=== PATIENT | female | born 1965 | race Caucasian/White ===

== ENCOUNTER → 2018-03-25 | Outpatient (CLI) | payer BC ==
[2018-03-25 14:50] VITALS: BP 131/84; PULSE 77; TEMP 98.3; BMI 24.7
--- NOTE | 2018-03-25 16:27 | P.HPOB ---
History of Present Illness H&P Date: 03/25/18 Chief Complaint: The patient is here for her routine gynecologic exam. This is a 52 year old G2 PII with an LMP of 2013. The patient has a long history of a hand rash. She states during the past 15 years she has had intermittent exacerbations of a rash on her hand especially between the fingers. She states that has been aggravated by certain foods including dairy, wheat, and fried foods. The rest typically goes away after a couple of days. The patient noticed similar symptoms in the anterior vulvar area during the past 2 months. She denies seeing any actual blisters, but she states it does feel like paper cuts or like athletes feet. She denies any vaginal discharge. She continues to be prescribed low dose HRT by Dr. Delfina Felipe. Review of Systems The patient has gained 7 pounds over the last year. She denies respiratory, cardiac, or G.I. problems. Past Medical History Past Medical History: Hyperlipidemia, Thyroid Disorder (Hypothyroid) Additional Past Medical History / Comment(s): Seasonal allergies and osteopenia. 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 She does have a history of endometriosis in the past. History of Any Multi-Drug Resistant Organisms: None Reported Additional Past Surgical History / Comment(s): ovary removal-2010 Past Psychological History: No Psychological Hx Reported Smoking Status: Never smoker Past Alcohol Use History: Rare (4 per month) Past Drug Use History: None Reported Additional History: She has been since the . 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 - Past Family History Mother Family Medical History: Congestive Heart Failure (CHF), Diabetes Mellitus Medications and Allergies Home Medications Medication Instructions Recorded Confirmed Type Estradiol [Estradiol 0.05 MG Patch] 1 patch TRANSDERM [id number] 03/25/18 03/25/18 History Progesterone, Micronized 100 mg PO 03/25/18 History [Progesterone] Allergies Allergy/AdvReac Type Severity Reaction Status Date / Time No Known Allergies Allergy Unverified 03/25/18 14:45 Exam Vital Signs Temp Pulse BP 03/25/18 14:45 98.3 F 77 131/84 Intake and Output 03/25/18 03/25/18 03/25/18 06:59 14:59 22:59 Other: Weight 67.585 kg Height 5'5", weight 149 pounds, BMI 24.8. This is a well-developed well-nourished white female who is alert and oriented times 3 in no acute distress. SKIN: there is a macula papular rash on the hands bilaterally in the spaces between the fingers. HEENT: Within normal limits. NECK: Supple without mass or thyromegaly. CHEST AND LUNGS: Clear to auscultation. HEART: Regular rate and rhythm. BREASTS: Are without mass or discharge. AXILLARY EXAM: Negative for adenopathy. BACK: Negative for CVA tenderness. ABDOMEN: Soft, nontender, without palpable masses. PELVIC EXAM: there is mild inflammation in the area of the anterior vulva extending bilaterally to about the 10 o'clock to 2 o'clock regions of the vulva. There is no leukoplakia or pallor and there is mild erythema. This is the area that she describes is feeling irritated. Cervix and vagina appear normal with minimal atrophy. There is no unusual discharge. There is no evidence of prolapse. The uterus is slightly retroverted, nongravid size and nontender. There are no palpable adnexal masses or tenderness. RECTAL EXAM: rectovaginal exam is negative for mass or tenderness and is negative for occult blood. EXTREMITIES: Nontender. IMPRESSION: 1. 52-year-old menopausal female on low dose HRT as prescribed by her primary care physician. 2. Nonspecific vulvar dermatitis which resembles a chronic hand dermatitis that she is had for many years. Differential diagnosis will include eczema, psoriasis, contact dermatitis and atopic dermatitis. The hand rash does not have the typical appearance of scabies. PLAN: 1. Pap smear was deferred since she had a normal in less than 2 years ago. 2. Self breast awareness was discussed with the patient. 3. Mammogram will be due on or around 04/23/2018. The order slip was given to the patient for this. 4. I have recommended screening colonoscopy based on her age. Cards for Dr. Elvira Aldridge and Dr. Bello were given to the patient. She states she will look into this. 5. Kenalog 0.1% cream BID PRN for skin irritation. She will also alternate this with moisturizing hand cream for petroleum jelly as a protective layer. She will do this for up to 2 weeks and if it has not improved I've recommended that she see a paramedic supervisor for her skin conditions. The prescription will be sent to [facility]. 6. She will return in one year and PRN.
== END | disposition home or self-care (01) ==
LOC: WWCWWP 14:25
PROVIDERS: ATTEND Obstetrics & Gynecology
DX: Z53.9 Procedure and treatment not carried out, unspecified reason (principal)

== ENCOUNTER → 2018-09-10 | Outpatient (CLI) | payer BC ==
--- NOTE | 2018-09-11 10:43 | MM ---
Reason for exam: screening (asymptomatic). Last mammogram was performed 1 year and 5 months ago. History: Taking progesterone for 5 years beginning at age 44. Physical Findings: A clinical breast exam by your physician is recommended on an annual basis and results should be correlated with mammographic findings. MG 3D Screening Mammo W/Cad Bilateral CC and MLO view(s) were taken. Prior study comparison: April 23, 2017, bilateral MG 3d screening mammo w/cad. March 29, 2016, right breast MG 3d work up w/cad RT. The breast tissue is extremely dense which could obscure a lesion on mammography. No suspicious abnormality. No significant changes when compared with prior studies. ASSESSMENT: Negative, BI-RAD 1 RECOMMENDATION: Routine screening mammogram of both breasts in 1 year.
== END | disposition home or self-care (01) ==
LOC: RADMAMWWP 09:56
PROVIDERS: ATTEND Obstetrics & Gynecology
DX: Z12.31 Encounter for screening mammogram for malignant neoplasm of breast (principal)
CPT/HCPCS: 77063; 77067

== ENCOUNTER 2019-04-22 08:12 | Day surgery (SDC) | payer BC ==
[2019-04-20 11:57] VITALS: BMI 25.0
[~2019-04-22 08:12] MED LIST: LACTATED RINGERS 1,000 ML IV SCH; LIDOCAINE 1% 20 ML VIAL (10MG/ML) FOR IV START INTRADERMA PRN
[2019-04-22 08:59] VITALS: RESP 16; TEMP 97.8
[2019-04-22] MEDS ORDERED: PROPOFOL 10 MG/ML 20 ML VIAL IV ONE (09:54)
--- NOTE | 2019-04-22 10:08 | P.PCN ---
Date of Procedure: 04/22/19 Procedure(s) Performed: BRIEF HISTORY: Patient is a 53-year-old pleasant female scheduled for an elective colonoscopy as a part of screening for colorectal neoplasia. PROCEDURE PERFORMED: Colonoscopy. PREOPERATIVE DIAGNOSIS: Screening for colon cancer. IV sedation per Anesthesia. PROCEDURE: After informed consent was obtained, the patient, was brought into the endoscopy unit. IV sedation was administered by Anesthesia under continuous monitoring. Digital rectal examination was normal. Initially the Olympus CF-160 flexible video colonoscope was then inserted in the rectum, gradually advanced into the cecum without any difficulty. Careful examination was performed as the scope was gradually being withdrawn. Ileocecal valve and the appendiceal orifice were visualized and appeared normal. Prep was excellent. Mucosa of the cecum, ascending colon, transverse colon, descending colon, sigmoid colon, and rectum appeared normal. Retroflexion was performed in the rectum and no lesions were seen. The patient tolerated the procedure well. IMPRESSION: Normal-appearing colon from rectum to cecum with no evidence of colorectal neoplasia. RECOMMENDATIONS: Findings of this examination were discussed with the patient as well as a family. She was advised to have a repeat screening colonoscopy in 10 years.
[2019-04-22 10:35] VITALS: BP 120/73; PULSE 74
== END 2019-04-22 10:55 | disposition home or self-care (01) ==
LOC: ORWHC2ENDO 08:12
PROVIDERS: ATTEND Internal Medicine Gastroenterology
DX: Z12.11 Encounter for screening for malignant neoplasm of colon (principal); E07.9 Disorder of thyroid, unspecified; Z79.890 Hormone replacement therapy; Z79.818 Long term (current) use of other agents affecting estrogen receptors and estrogen levels; Z90.721 Acquired absence of ovaries, unilateral
CPT/HCPCS: J2704; G0121

== ENCOUNTER → 2019-10-29 | Outpatient (CLI) | payer BC ==
--- NOTE | 2019-10-29 17:29 | CONS ---
CONSULTATION DATE OF SERVICE: 10/29/2019 A 54-year-old lady has been evaluated in the Sleep Center for excessive daytime sleepiness and snoring. HISTORY OF PRESENT ILLNESS/SLEEP-WAKE EVALUATION: Patient's usual sleep schedule from 10 p.m. to 5:45 - 6:00 am on working days and until 6:30 a.m. on weekends. Sometimes, she has problems with falling asleep. She prefers to sleep on the side and stomach position. She snores and according to her , she wakes up from sleep with episodes of changing of her breathing. She wakes up with a dry mouth, palpitation, restless legs and waking up to 5 times at night and once she has episodes of nocturia. No history of hypnagogic hallucinations, sleep paralysis or cataplexy. In the morning, she wakes up tired, has difficulties to pay attention, falling asleep during the day, has problems with memory, concentration, debility, anxiety, sexual dysfunction. [place] Sleepiness Scale significantly increased to 14. She may take one nap a day around 3 - 4:00 pm. Really she does not feel refreshed after a nap, does not see dreams during nap. PAST MEDICAL HISTORY: Positive for tiredness. PAST SURGICAL HISTORY: Oophorectomy. MEDICATIONS: Progesterone, estradiol and T-thyroid. SOCIAL HISTORY: Alcohol consumption occasional. No history of using any illegal drugs. FAMILY HISTORY: Positive for heart problems, hyperlipidemia, asthma, diabetes, restless legs. REVIEW OF SYSTEMS: Awakenings from sleep, sleepiness and tiredness during the day. PHYSICAL EXAM: lady without distress, BP 130/67, HR 72, RR 16, height 5 foot, 5-1/2 inches, weight 146 pounds, body mass index 23.9, temperature 98.6, oxygen saturation at room air 97%. OROPHARYNX: Moderately low position of soft palate. Neck is 13 inches in circumference. NECK: Supple, no JVD. Thyroid is not palpable. LUNGS: Clear to percussion and to auscultation. Good air exchange. No wheezing or rhonchi. HEART: S1, S2 regular. No murmurs, gallops, or rubs. ABDOMEN: Soft and nontender. Bowel sounds are present. No organomegaly appreciated. EXTREMITIES: No clubbing or cyanosis. BIOCHEMICAL DEVELOPMENT ENGINEER: Awake, alert, and oriented X3. Cranial nerves 2 to 7 intact. There is no fasciculation or atrophy. noted. No focal deficits observed. IMPRESSION: 1. Snoring, awakenings from sleep after changing of the breathing, nocturia, tiredness, and sleepiness during the day. Possible obstructive sleep apnea- hypopnea syndrome. 2. Significant excessive daytime sleepiness with [place] Sleepiness Scale of 14. Dictate necessity to include hypersomnia in differential diagnosis. 3. Positive history of restless legs movements at night, possibly periodic limb movements. 4. Hypothyroidism. 5. Status post oophorectomy. PLAN: 1. Home sleep apnea test. 2. CPAP/BiPAP titration if sleep study confirms obstructive sleep apnea-hypopnea syndrome. 3. Preferable position during sleep on the side. 4. No driving if patient feels any sleepiness. 5. I will see patient for follow up visit to explain results of testing and following plan. 6. If sleep study will be negative for obstructive sleep apnea-hypopnea syndrome, will proceed with polysomnogram and following with multiple sleep latency tests for objective evaluation of patient's symptoms of excessive daytime sleepiness. Thank you very much for referring this patient for consultation. Sincerely, Kodi Ron MD, PhD, FAASM Diplomat of [place] [employer] [place] [employer] Lead Mechanical Engineer of [facility] [place] MMODL / OPALN: [id number] /
== END | disposition home or self-care (01) ==
LOC: SLEEP 14:56
PROVIDERS: ATTEND Internal Medicine
DX: G47.10 Hypersomnia, unspecified (principal); G25.81 Restless legs syndrome; R53.83 Other fatigue; R35.1 Nocturia; E03.9 Hypothyroidism, unspecified; Z98.890 Other specified postprocedural states; Z79.890 Hormone replacement therapy
CPT/HCPCS: 99211

== ENCOUNTER → 2019-12-16 | Day surgery (SDC) | payer BC ==
[2019-12-16 09:45] VITALS: BP 143/86; PULSE 81; RESP 16; TEMP 98.1
--- NOTE | 2019-12-16 11:01 | P.PCN ---
Date of Procedure: 12/16/19 Preoperative Diagnosis: Cervical polyp Postoperative Diagnosis: Same Procedure(s) Performed: Removal of cervical polyp Anesthesia: none Surgeon: Milo Cox Estimated Blood Loss (ml): 0 Pathology: other (cervical polyp) Condition: stable Disposition: same day Indications for Procedure: This was a 54-year-old with an LNMP of 2014. At her routine examination, she was found to have a polypoid growth at the 5 o'clock position of her ectocervix. The polypoid growth measuring approximately 3 x 4 mm. She also had recently experienced a small amount of postmenopausal vaginal bleeding on 12/02/2019. She has been taking continuous HRT as prescribed by her primary doctor. She has also been experiencing chronic vulvar irritation for about 1- 1/2 years. Initially I was planning to biopsy the vulva in the area showing the greatest irritation, however, her recent Pap smear showed evidence of Julisa and she has also been told she has a chronic overgrowth of Julisa. Upon inspection today, there was no focal lesions and there was generalized vulvar erythema and inflammation. The patient requested to not do the vulvar biopsy today. The decision was made not to biopsy the vulva but to treat the Julisa. I did proceed to remove the cervical polyp. The patient was also notified of the abnormal Pap smear showing ASCUS with fungal elements. High-risk HPV testing is pending. Operative Findings: Generalized vulvar erythema and generalized inflammation without focal lesion was noted. The cervix had a polypoid mass at the 5 o'clock position measuring approximately 3 x 4 mm. Description of Procedure: We discussed the proposed procedures including vulvar biopsy and removal of cervical polyp. We discussed possible risks and complications including bleeding and infection. We also have discussed the Pap smear findings showing ASCUS with fungal elements consistent with Julisa. With these findings, the patient requested to cancel the vulvar biopsy and to treat the Julisa to see if this helps. External genitalia revealed generalized vulvar erythema and generalized inflammation. No focal lesions were noted. The patient was placed in the lithotomy position and a speculum was inserted into the vagina. The cervical findings were as noted above. The cervix and vagina were prepped with Betadine solution. A cervical biopsy instrument was used to remove the polypoid mass and this was done without complications. A small amount of blood was noted at the site which was made hemostatic with a silver nitrate stick. The patient tolerated the procedure well. The estimated blood loss was minimal. Post procedure vitals signs include blood pressure was 149/84, pulse 59 and pulse oximeter 100%. The patient was advised to avoid sexual activity for 7 days. She'll also avoid running for 4 day. She was instructed to call if she has heavier bleeding or unusual pain or fever. Specimens sent included cervical polyp. A prescription for Diflucan 150 mg by mouth daily at bedtime 3 days and a presc ription for Terazol 7 cream which she will apply to the outer vagina and vulva daily at bedtime 7 days. The electronic prescriptions will be sent to [facility]. The patient is to undergo a pelvic ultrasound for the small postmenopausal bleeding. The patient was given an order slip for this on 12/08/2019. Await high-risk HPV testing for her ASCUS Pap smear.
--- NOTE | 2019-12-22 13:55 | P.PN ---
Progress Note - Text Progress Note Date: 12/22/19 OUTPATIENT FOLLOW-UP NOTE TEST(S)/RESULTS: Test results from 12/08/2019 include passer showing ASCUS with negative high-risk HPV testing. Signs of Julisa on the Pap smear were also noted. Removal of cervical polypoid growth on 12/16/2019 showed benign polypoid squamous and endocervical mucosa with mild squamous atypia. METHOD OF NOTIFICATION: The patient was notified by phone. PATIENT COMMENTS: The patient states the Diflucan and Terazol cream have been helping with her vulvar irritation and she states she noticed an improvement almost immediately. She has made an appointment for a pelvic ultrasound at her local hospital during the month of December. DIAGNOSIS: ASCUS Pap smear with negative high-risk HPV testing. Julisa vaginitis and vulvitis with symptomatic improvement with Diflucan and Terazol. Polypoid cervical growth biopsy showed mild squamous atypia. DISCUSSION: She states her other doctor may want to treat her for a longer period of time with Diflucan for possible systemic Julisa. PLAN: Repeat Pap smear in 2-3 years with high-risk HPV testing at that time. Pelvic ultrasound is scheduled at her local hospital sometime this month. She was instructed to call if she has recurrent vulvar irritation or focal changes that are not improved with the Julisa treatment. She was advised to return in one year for her annual well woman exam and as needed.
== END ==
LOC: WWCWWP 08:46
PROVIDERS: ATTEND Obstetrics & Gynecology
DX: R87.612 Low grade squamous intraepithelial lesion on cytologic smear of cervix (LGSIL) (principal); N87.9 Dysplasia of cervix uteri, unspecified; B37.3 Candidiasis of vulva and vagina; Z79.890 Hormone replacement therapy; N95.0 Postmenopausal bleeding; E78.5 Hyperlipidemia, unspecified; E07.9 Disorder of thyroid, unspecified; M85.80 Other specified disorders of bone density and structure, unspecified site; Z86.19 Personal history of other infectious and parasitic diseases; Z87.42 Personal history of other diseases of the female genital tract; Z90.721 Acquired absence of ovaries, unilateral; Z82.49 Family history of ischemic heart disease and other diseases of the circulatory system; Z83.3 Family history of diabetes mellitus; Z79.899 Other long term (current) drug therapy
CPT/HCPCS: 88305

== ENCOUNTER → 2020-01-13 | Day surgery (SDC) | payer BC ==
[2020-01-13 12:17] VITALS: BP 138/70; PULSE 70; RESP 18; TEMP 98.6
--- NOTE | 2020-01-13 13:01 | P.PCN ---
Date of Procedure: 01/13/20 Preoperative Diagnosis: Post menopausal bleeding. Thickened endometrium. Postoperative Diagnosis: Same Procedure(s) Performed: endometrial biopsy Anesthesia: none Surgeon: Milo Cox Estimated Blood Loss (ml): 0 Pathology: other (endometrial tissue) Condition: stable Disposition: same day Indications for Procedure: This was a 54-year-old menopausal female with a LNMP of 2014. The patient was on HRT for several years. The patient had light postmenopausal bleeding around 12/02/2027. Pelvic ultrasound showed endometrial thickening with an endometrial thickness of 14 mm. The patient discontinued her HRT around 01/05/2020 and was scheduled for an endometrial biopsy. Postmenopausal bleeding has stopped after she discontinued the HRT. Operative Findings: The uterus is slightly retroverted. There are no palpable adnexal masses or tenderness. The uterus sounded to 7.0 cm. Small tissue was obtained. Description of Procedure: The procedure and indications were discussed with the patient in detail. Possible risks including bleeding, infection, and uterine perforation were discussed. All questions were answered. The patient was placed in the lithotomy position and bimanual examination was performed. The uterus was found to be slightly retroverted and is nongravid size. There are no palpable adnexal masses or tenderness. The cervix and vagina were prepped with Betadine solution. The posterior lip of the cervix was grasped with an Allis clamp. The 3 mm endometrial biopsy instrument was inserted into the endometrial cavity without difficulty. The instrument was placed to the fundus and measured 7.0 cm. Negative pressure was applied and a [id number] rotating motion was used. Small amount of tissue was obtained. The procedure was performed one more time and again, small amount of tissue was obtained. The tissue was sent for pathological examination. A small amount of tissue was noted at the cervical os immediately following the sampling and this was also sent with the endometrial tissue. The patient tolerated the procedure well. The estimated blood loss was 0 mL. Specimens sent included the endometrial tissue. There were no complications. Post procedure instructions were given to the patient. The patient was instructed to call if she has heavy bleeding, unusual pain, fever or problems. Post procedure vitals signs: Blood pressure 156/84, pulse 86, pulse oximeter 98%. The patient was discharged home in stable condition.
--- NOTE | 2020-01-19 11:43 | P.PN ---
Progress Note - Text Progress Note Date: 01/19/20 OUTPATIENT FOLLOW-UP NOTE TEST(S)/RESULTS: Endometrial biopsy pathology from 01/13/2020 showed a benign disordered proliferative endometrium. METHOD OF NOTIFICATION: She was notified by phone. PATIENT COMMENTS: Patient had discontinued HRT about 10 days prior to the endometrial biopsy. She has been experiencing hot flashes at night and she tends to wake up about every 1 hour because of this. She also has noticed more moodiness and anxiety which she attributes to stopping the HRT. DIAGNOSIS: Benign endometrial biopsy. Menopausal symptoms after discontinuing HRT including vasomotor symptoms, moodiness and anxiety DISCUSSION: We had a long discussion regarding options for her menopausal symptoms. I have recommended that she try to stay off of HRT if possible. We have discussed possible risks including increased risk for breast cancer, heart attack and stroke with combination HRT. We discussed other options including SSRI medications as well as clonidine. She would like to have a trial of paroxetine for her symptoms. A prescription for paroxetine 10 mg daily will be sent to [facility] in [facility]. PLAN: As above. She will follow-up in approximately 2 months to let me know how she is doing with the medication. She will also call if she has any questions or problems.
== END ==
LOC: WWCWWP 11:58
PROVIDERS: ATTEND Obstetrics & Gynecology
DX: R93.89 Abnormal findings on diagnostic imaging of other specified body structures (principal); N95.0 Postmenopausal bleeding
CPT/HCPCS: 88305

== ENCOUNTER → 2020-02-04 | Outpatient (CLI) | payer BC ==
--- NOTE | 2020-02-05 04:22 | SFUN ---
SLEEP CENTER FOLLOW UP NOTE DATE OF SERVICE: 02/04/2020 This is a 54-year-old lady who has been followed in Sleep Center to discuss results of the sleep study and following plan. Previously, patient had home sleep apnea test which was negative for obstructive sleep apnea, but patient continued to have symptoms of excessive daytime sleepiness and we proceed with polysomnogram and multiple sleep latency test. Polysomnogram did not show any significant abnormalities of respiration. Total apnea- hypopnea index 1.1. In REM sleep, it is although high at 4.7, but still in the range which by today criteria is considered to be normal. Lowest oxygen level 92.3% which is normal. EMG showed 15.2 periodic limb movements per hour with 1.8 microarousals per hour which does indicate mild periodic limb movements. Multiple sleep latency test done on the following day consisted from 5 naps. Mean sleep latency was 8.8 minutes. One REM period was diagnosed in the last nap. I discussed results of sleep study with the patient in detail. Today her [place] Sleepiness Scale is 15, which does indicate sleepiness. MEDICATIONS: Progesterone, Estradiol, T thyroid. PHYSICAL EXAMINATION: GENERAL: Patient in no distress. VITAL SIGNS: BP 141/79, HR 77, RR 15, weight 151.6 pounds, temperature 98.5, oxygen saturation at room air 96%. HEENT: PERRLA, EOMI, evaluation of oropharynx showed tongue protrudes midline. NECK: Supple, no JVD. Thyroid is not palpable. LUNGS: Clear to percussion and to auscultation. Good air exchange. No wheezing or rhonchi. HEART: S1, S2 regular. No murmurs, gallops, or rubs. ABDOMEN: Soft and nontender. Bowel sounds are present. No organomegaly appreciated. EXTREMITIES: No clubbing or cyanosis. WRITER EDITOR: Awake, alert, and oriented X3. Cranial nerves 2 to 7 intact. There is no fasciculation or atrophy. noted. No focal deficits observed. IMPRESSION: 1. No significant respiratory abnormalities during sleep following today's criteria. 2. Mild periodic limb movements during the sleep have been documented. 3. Multiple sleep latency test showed shortening of sleep latency to 8.8 minutes with one period of REM sleep which does not confirm the diagnosis of narcolepsy, but possibly may indicate idiopathic hypersomnia or could be secondary to periodic limb movements. 4. Hypothyroidism. 5. Status post oophorectomy. PLAN: 1. Please check iron profile including ferritin level. Low level of iron could be related to development of periodic limb movements and restless legs. If level of ferritin less than 50 mcg/mL, treatment with iron supplement is indicated. 2. Sleep hygiene with regular time in bed for at least 8 hours. 3. Precautions related to driving. No driving if feeling sleepiness. 4. I discussed with the patient possibility to use medications to prevent sleepiness during the day. At the present time patient prefers not to start additional medications. Thank you very much for allowing me to participate in management of your patient. Sincerely, Kodi Ron MD, PhD, FAASM Diplomat of [place] [employer] [place] [employer] Head Banquet Waitress of [facility] [place] MMODL / OPALN: [id number] /
== END | disposition home or self-care (01) ==
LOC: SLEEP 17:01
PROVIDERS: ATTEND Internal Medicine
DX: G47.61 Periodic limb movement disorder (principal); E03.9 Hypothyroidism, unspecified; Z90.721 Acquired absence of ovaries, unilateral

== ENCOUNTER → 2020-02-18 | Outpatient (CLI) | payer BC ==
--- NOTE | 2020-02-19 12:20 | MM ---
Reason for exam: screening (asymptomatic). Last mammogram was performed 1 year and 5 months ago. History: Taking progesterone for 5 years beginning at age 44. Physical Findings: A clinical breast exam by your physician is recommended on an annual basis and results should be correlated with mammographic findings. MG 3D Screening Mammo W/Cad Bilateral CC and MLO view(s) were taken. Prior study comparison: September 10, 2018, bilateral MG 3d screening mammo w/cad. April 23, 2017, bilateral MG 3d screening mammo w/cad. The breast tissue is heterogeneously dense. This may lower the sensitivity of mammography. There are benign appearing round calcifications bilaterally. There is no discrete abnormality. ASSESSMENT: Benign, BI-RAD 2 RECOMMENDATION: Routine screening mammogram of both breasts in 1 year.
== END | disposition home or self-care (01) ==
LOC: RADMAMWWP 13:05
PROVIDERS: ATTEND Obstetrics & Gynecology
DX: Z12.31 Encounter for screening mammogram for malignant neoplasm of breast (principal)
CPT/HCPCS: 77063; 77067

== ENCOUNTER → 2021-03-21 | Outpatient (CLI) | payer BC ==
[2021-03-21 12:56] VITALS: BP 138/81; PULSE 63; RESP 16; TEMP 97.9
--- NOTE | 2021-03-21 13:40 | P.HPOB ---
History of Present Illness H&P Date: 03/21/21 Chief Complaint: The patient is here for her routine gynecologic exam and ma mmogram. This is a 55-year-old with an LNMP of 2014. The patient had a benign endometrial biopsy last year for postmenopausal bleeding on continuous HRT. She did stop HRT for a while, but is now again taking HRT through her PCP, Dr. Chinyere Felipe. She states she has had a small amount of postmenopausal bleeding when she misses her progesterone pills. She denies any other postmenopausal bleeding. She states she has an order slip for a pelvic ultrasound from her PCP, but has not yet done this. She plans on having the pelvic ultrasound. Her last Pap smear showed ASCUS on 12/08/2019. The high- risk HPV testing at that time was negative. Review of Systems The patient has gained 9 pounds over the last year. She denies respiratory, cardiac, or G.I. problems. Past Medical History Past Medical History: Hyperlipidemia, Thyroid Disorder Additional Past Medical History / Comment(s): Chronic Lyme's disease. Seasonal allergies and osteopenia. PAST MAGAZINE HAND HISTORY: She has no history of STDs. History of Any Multi-Drug Resistant Organisms: None Reported Additional Past Surgical History / Comment(s): Left ovary removed with right ovarian cystectomy in 2010. Colonoscopy 2019(next after 10yr). Past Anesthesia/Blood Transfusion Reactions: Motion Sickness Past Psychological History: No Psychological Hx Reported Smoking Status: Never smoker Past Alcohol Use History: Rare Past Drug Use History: None Reported Additional History: She has been since the and is retired. - Past Family History Mother Family Medical History: Congestive Heart Failure (CHF), Diabetes Mellitus Medications and Allergies Home Medications Medication Instructions Recorded Confirmed Type Multivitamins, Thera [Multivitamin 1 tab PO DAILY 04/20/19 03/21/21 History (formulary)] [place]-3 Fatty Acids/Fish Oil [Fish 1 each PO DAILY 04/20/19 03/21/21 History Oil 1,000 mg Softgel] Thyroid,Pork [Forensic Investigator Thyroid] 90 mg PO DAILY 04/20/19 03/21/21 History Vitamin K/D 1 tab PO DAILY 04/20/19 03/21/21 History estradioL [Estradiol 0.0375 MG 1 patch TRANSDERM DIRECTED 12/08/19 03/21/21 History Patch] Progesterone, Micronized 200 mg PO HS 03/21/21 03/21/21 History [Progesterone] Allergies Allergy/AdvReac Type Severity Reaction Status Date / Time No Known Allergies Allergy Verified 03/21/21 12:50 Exam Vital Signs Temp Pulse Resp BP Pulse Ox 03/21/21 12:51 97.9 F 63 16 138/81 99 Intake and Output 03/20/21 03/21/21 03/21/21 22:59 06:59 14:59 Other: Weight 71.214 kg Height 5 feet 5 inches, weight 157 pounds, BMI 26.1. This is a well-developed well-nourished white female who is alert and oriented times 3 in no acute distress. HEENT: Within normal limits. NECK: Supple without mass or thyromegaly. CHEST AND LUNGS: Clear to auscultation. HEART: Regular rate and rhythm. BREASTS: Are without mass or discharge. There is a right breast mole at the 7 o'clock position measuring 9 x 7 mm which she has had for many years and she states this is unchanged. 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 AXILLARY EXAM: Negative for adenopathy. BACK: Negative for CVA tenderness. ABDOMEN: Soft, nontender, without palpable masses. PELVIC EXAM: Normal external genitalia with minimal atrophy. Cervix and vagina appear normal with minimal atrophy. There is a small amount of dark blood in the back of the vagina with no active bleeding. There is no evidence of prolapse. The uterus is midposition, slightly retroverted, nongravid size and nontender. There are no palpable adnexal masses or tenderness. RECTAL EXAM: Rectovaginal exam is negative for mass or tenderness and is negative for occult blood. EXTREMITIES: Nontender. IMPRESSION: 1. 55-year-old menopausal female on continuous HRT as prescribed by her PCP. 2. Small postmenopausal bleeding only after missing progesterone pills per the patient. Benign endometrial biopsy one year ago. 3. History of ASCUS Pap smear on 12/08/2019 with negative high-risk HPV testing at that time. PLAN: 1. Pap smear was deferred and we will plan on performing a cotest next year. 2. Self breast awareness was discussed with the patient. We have also discussed symptoms associated with inflammatory breast cancer. 3. Screening mammogram will be done today. 4. I have recommended she wean off of HRT. She states she will schedule a pelvic ultrasound as ordered by her PCP. She will send a copy of the results to me. She understands that if the endometrial thickness is thickened, I may recommend repeating the endometrial biopsy. 5. Osteoporosis prevention was discussed. I have stressed the importance of adequate calcium, vitamin D and regular exercise. Recommended amounts of c alcium and vitamin D were also discussed. 6. She was advised to return in one year for her annual well woman exam.
--- NOTE | 2021-03-23 10:51 | MM ---
Reason for exam: screening (asymptomatic). Last mammogram was performed 1 year and 1 month ago. History: Taking progesterone for 5 years beginning at age 44. Physical Findings: A clinical breast exam by your physician is recommended on an annual basis and results should be correlated with mammographic findings. MG 3D Screening Mammo W/Cad Bilateral CC and MLO view(s) were taken. Prior study comparison: February 18, 2020, bilateral MG 3d screening mammo w/cad. September 10, 2018, bilateral MG 3d screening mammo w/cad. April 23, 2017, bilateral MG 3d screening mammo w/cad. The breast tissue is heterogeneously dense. This may lower the sensitivity of mammography. Central posterior left MLO focal asymmetry is more defined and persists on 3D images. ASSESSMENT: Incomplete: need additional imaging evaluation, BI-RAD 0 RECOMMENDATION: Special view mammogram of the left breast. (3D) If lesion persists on supplemental views, image directed ultrasound is recommended. [facility] will attempt to contact patient to return for supplemental views and ultrasound if indicated.
== END ==
LOC: WWCWWP 12:37
PROVIDERS: ATTEND Obstetrics & Gynecology
DX: Z12.31 Encounter for screening mammogram for malignant neoplasm of breast (principal); Z01.419 Encounter for gynecological examination (general) (routine) without abnormal findings; N85.01 Benign endometrial hyperplasia; E78.5 Hyperlipidemia, unspecified; Z78.0 Asymptomatic menopausal state
CPT/HCPCS: 77063; 77067

== ENCOUNTER → 2021-04-18 | Outpatient (CLI) | payer BC ==
--- NOTE | 2021-04-18 11:42 | MM ---
Reason for exam: additional evaluation requested from abnormal screening. Last mammogram was performed 1 month ago. History: Took estrogen beginning at age 51. Taking progesterone for 5 years beginning at age 44. Taking other hormone beginning at age 55. Physical Findings: Nurse did not find any significant physical abnormalities on exam. MG 3D Work Up W/Cad LT Spot compression CC, spot compression MLO, and LM view(s) were taken of the left breast. Prior study comparison: March 21, 2021, bilateral MG 3d screening mammo w/cad. February 18, 2020, bilateral MG 3d screening mammo w/cad. The breast tissue is heterogeneously dense. This may lower the sensitivity of mammography. Focal asymmetry upper MLO, likely present previous. Disperses on compression. Short term follow up. These results were verbally communicated with the patient and result sheet given to the patient on 04/18/21. ASSESSMENT: Probably benign, BI-RAD 3 RECOMMENDATION: Follow-up diagnostic mammogram of the left breast in 6 months. (to include left LM)
== END | disposition home or self-care (01) ==
LOC: RADMAMWWP 10:20
PROVIDERS: ATTEND Obstetrics & Gynecology
DX: N64.89 Other specified disorders of breast (principal)
CPT/HCPCS: 77061; 77065

== ENCOUNTER → 2021-10-18 | Outpatient (CLI) | payer BC ==
--- NOTE | 2021-10-18 13:15 | MM ---
Reason for Exam: Follow-up at short interval from prior study. Last screening mammogram was performed 7 month(s) ago. Patient History: Menarche at age 15. First Full-Term at age 32. Late child-bearing (after 32). Left ovary removed at age 45. Postmenopausal. Currently using Estrogen, starting at age 51. Currently using Progesterone, beginning at age 44 for 5 years. Risk Values: Paz 5 year model risk: 1.6%. NCI Lifetime model risk: 11.4%. Prior Study Comparison: 02/18/2020 Bilateral Screening Mammogram, [facility]. 03/21/2021 Bilateral Screening Mammogram, [facility]. 04/18/2021 Left Diagnostic Mammogram, [facility]. Tissue Density: Left: The breast tissue is heterogeneously dense. This may lower the sensitivity of mammography. Findings: Analyzed By CAD. There is a benign-appearing calcification. No dominant mass or architectural distortion. Overall Assessment: Benign, BI-RAD 2 Management: Screening Mammogram of both breasts in 6 months. A clinical breast exam by your physician is recommended on an annual basis and results should be correlated with mammographic findings. This exam should not preclude additional follow-up of suspicious palpable abnormalities. Results were given to the patient verbally at the time of exam. Electronically signed and approved by: Joce Felix M.D. Radiologis
== END | disposition home or self-care (01) ==
LOC: RADMAMWWP 12:45
PROVIDERS: ATTEND Obstetrics & Gynecology
DX: R92.1 Mammographic calcification found on diagnostic imaging of breast (principal); Z78.0 Asymptomatic menopausal state
CPT/HCPCS: 77061; 77065

== ENCOUNTER → 2022-03-28 | Outpatient (CLI) | payer BC ==
--- NOTE | 2022-03-29 10:34 | MM ---
Reason for Exam: Screening (asymptomatic). Last screening mammogram was performed 12 month(s) ago. Patient History: Menarche at age 15. First Full-Term at age 32. Late child-bearing (after 32). Left ovary removed at age 45. Postmenopausal. Patient has history of breast feeding. Currently using Estrogen, starting at age 51. Currently using Progesterone, beginning at age 44 for 5 years. Risk Values: Paz 5 year model risk: 1.6%. NCI Lifetime model risk: 11.4%. Prior Study Comparison: 09/22/2013 Bilateral Screening Mammogram, [facility]. 09/28/2014 Bilateral Screening Mammogram, [facility]. 03/27/2016 Bilateral Screening Mammogram, [facility]. 04/23/2017 Bilateral Screening Mammogram, [facility]. 09/10/2018 Bilateral Screening Mammogram, [facility]. 02/18/2020 Bilateral Screening Mammogram, [facility]. 03/21/2021 Bilateral Screening Mammogram, [facility]. 04/18/2021 Left Diagnostic Mammogram, [facility]. 10/18/2021 Left MG 3D diag mammo w/cad , [facility]. Tissue Density: The breast tissue is heterogeneously dense. This may lower the sensitivity of mammography. Findings: Analyzed By CAD. Appears symmetrical and stable. No significant interval change is evident. No suspicious groups of microcalcifications, spiculated or lobular masses, architectural distortion or other secondary signs of malignancy are mammographically apparent. Overall Assessment: Benign, BI-RAD 2 Management: Screening Mammogram of both breasts in 1 year. A negative mammogram report should not preclude additional follow up of suspicious palpable abnormalities. Patient should continue monthly self breast exam. A clinical breast exam by your physician is recommended on an annual basis and results should be correlated with mammographic findings. Electronically signed and approved by: Gregg Wiggins D.O. Radiologis
== END | disposition home or self-care (01) ==
LOC: RADMAMWWP 12:44
PROVIDERS: ATTEND Physician Assistant
DX: Z12.31 Encounter for screening mammogram for malignant neoplasm of breast (principal); Z78.0 Asymptomatic menopausal state
CPT/HCPCS: 77063; 77067

== ENCOUNTER → 2023-06-04 | Outpatient (CLI) | payer BC ==
--- NOTE | 2023-06-04 14:02 | MM ---
Reason for Exam: Screening (asymptomatic). Last mammogram was performed 1 year(s) and 2 month(s) ago. Patient History: Menarche at age 15. First Full-Term at age 32. Late child-bearing (after 32). Left ovary removed at age 45. Postmenopausal. Patient has history of breast feeding. Currently using Estrogen, starting at age 51. Currently using Progesterone, beginning at age 44 for 5 years. Risk Values: Paz 5 year model risk: 1.7%. NCI Lifetime model risk: 10.9%. Prior Study Comparison: 04/18/2021 Left Diagnostic Mammogram, [facility]. 10/18/2021 Left MG 3D diag mammo w/cad LT, [facility]. 03/28/2022 Bilateral MG 3D screening mammo w/cad, [facility]. Tissue Density: The breast tissue is heterogeneously dense. This may lower the sensitivity of mammography. Findings: Analyzed By CAD. There is no suspicious group of microcalcifications or new suspicious mass. Overall Assessment: Negative, BI-RAD 1 Management: Screening Mammogram of both breasts in [address] [facility] will attempt to contact patient to return for supplemental views and ultrasound if indicated. Patient should continue monthly self-breast exams. A clinical breast exam by your physician is recommended on an annual basis. This exam should not preclude additional follow-up of suspicious palpable abnormalities. Note on Paz scores and lifetime risk: 1. A Paz score greater than 3% is considered moderate risk. If this is the case, consider specialist referral to assess eligibility for a risk reducing agent. 2. If overall lifetime risk for the development of breast cancer is 20% or higher, the patient may qualify for future screening with alternating mammogram and breast MRI. Electronically signed and approved by: Deon Carlson DO
== END | disposition home or self-care (01) ==
LOC: RADMAMWWP 11:27
PROVIDERS: ATTEND Obstetrics & Gynecology
DX: Z12.31 Encounter for screening mammogram for malignant neoplasm of breast (principal); Z78.0 Asymptomatic menopausal state
CPT/HCPCS: 77063; 77067

== ENCOUNTER → 2024-06-11 | Outpatient (CLI) | payer OTHER ==
--- NOTE | 2024-06-12 07:46 | MM ---
Reason for Exam: Screening (asymptomatic). Last screening mammogram was performed 12 month(s) ago. Patient History: Menarche at age 15. First Full-Term at age 32. Late child-bearing (after 32). Left ovary removed at age 45. Postmenopausal. Patient has history of breast feeding. Currently using Estrogen, starting at age 51. Currently using Progesterone, beginning at age 44 for 5 years. Risk Values: Paz 5 year model risk: 1.8%. NCI Lifetime model risk: 10.7%. Prior Study Comparison: 10/18/2021 Left MG 3D diag mammo w/cad , [facility]. 03/28/2022 Bilateral MG 3D screening mammo w/cad, [facility]. 06/04/2023 Bilateral MG 3D screening mammo w/cad, [facility]. Tissue Density: The breasts are heterogeneously dense, which may obscure small masses. Findings: Analyzed By CAD. There is no suspicious group of microcalcifications or new suspicious mass in either breast. Overall Assessment: Negative, BI-RAD 1 Management: Screening Mammogram of both breasts in 1 year. . Patient should continue monthly self-breast exams. A clinical breast exam by your physician is recommended on an annual basis. This exam should not preclude additional follow-up of suspicious palpable abnormalities. Note on Paz scores and lifetime risk: 1. A Paz score greater than 3% is considered moderate risk. If this is the case, consider specialist referral to assess eligibility for a risk reducing agent. 2. If overall lifetime risk for the development of breast cancer is 20% or higher, the patient may qualify for future screening with alternating mammogram and breast MRI. [facility], , 06/12/2024 7:43 AM. Electronically signed and approved by: Monroe Ramirez M.D. Radiologist
== END | disposition home or self-care (01) ==
LOC: RADMAMWWP 15:59
PROVIDERS: ATTEND Obstetrics & Gynecology
DX: Z12.31 Encounter for screening mammogram for malignant neoplasm of breast (principal); R92.333 Mammographic heterogeneous density, bilateral breasts; Z78.0 Asymptomatic menopausal state
CPT/HCPCS: 77063; 77067